=== PATIENT | male | born 1985 | race Caucasian/White ===

== ENCOUNTER 2017-07-14 07:27 | Emergency (ER) | payer BC ==
[2017-07-14 07:45] VITALS: BP 131/88
--- NOTE | 2017-07-14 09:41 | UC ---
Respiratory Complaint HPI - HPI Summary HPI Summary: 2 DAYS OF DRY COUGH, CHEST CONGESTION, ST AND PAIN WITH SWALLOWING. HAS HAD TONSILLECTOMY. RAN OUT OF INHALER. ALSO C/O SEVERAL DAYS OF MID/UPPER BACK PAIN. STATES HE HAS CHRONIC BACK PAIN DRU TO ARTHRITIC CHANGES. USUALLY TAKES OTC MEDS BUT THIS TIME NOT HELPING, STATES HE HAS USED HYDROCODONE IN THE PAST WITH GOOD EFFECT BUT DOES NOT DO THIS ROUTINELY. LAST TIME WAS OVER 2 YEARS AGO. DENIES ANY INJURY. - History of Current Complaint Chief Complaint: UCBackPain Stated Complaint: SORE THROAT BACK PAIN Time Seen by Provider: 07/14/17 08:08 Hx Obtained From: Patient Onset/Duration: Gradual Onset, Lasting Days, Still Present Timing: Constant Severity Initially: Moderate Severity Currently: Moderate Pain Intensity: 2 Pain Scale Used: 0-10 Numeric Character: Cough: Nonproductive Aggravating Factors: Nothing Alleviating Factors: Nothing Associated Signs And Symptoms: Positive: URI. Negative: Dyspnea, Fever, Wheezing - Allergies/Home Medications Allergies/Adverse Reactions: Allergies Allergy/AdvReac Type Severity Reaction Status Date / Time lactose Allergy Vomiting Verified 07/14/17 07:37 latex Allergy Swelling Verified 07/14/17 07:37 Of Face,Lips,& Throat naproxen Allergy See Comment Verified 07/14/17 07:37 PMH/Surg Hx/FS Hx/Imm Hx Previously Healthy: Yes - Surgical History Surgical History: Yes Surgery Procedure, Year, and Place: TONISILS AND ADeNOIDS 2006; - Family History Known Family History: Positive: Cardiac Disease, Hypertension, Diabetes, Other - cholesterol - Social History Alcohol Use: Rare Substance Use Type: None Smoking Status (MU): Heavy Every Day Tobacco Smoker Type: Cigarettes Amount Used/How Often: 3-4 cigs/ days Have You Smoked in the Last Year: Yes Review of Systems Constitutional: Negative ENT: Sore Throat Respiratory: Cough Cardiovascular: Negative Gastrointestinal: Negative Musculoskeletal: Other: - BACK PAIN All Other Systems Reviewed And Are Negative: Yes Physical Exam Triage Information Reviewed: Yes Appearance: Well-Appearing, No Pain Distress, Well-Nourished Vital Signs: Initial Vital Signs Temp 98.9 F 07/14/17 07:35 Pulse 77 07/14/17 07:35 Resp 18 07/14/17 07:35 BP 131/88 07/14/17 07:35 Pulse Ox 96 07/14/17 07:35 Vital Signs Reviewed: Yes Eyes: Positive: Conjunctiva Clear ENT: Positive: Hearing grossly normal, Pharynx normal, TMs normal Neck: Positive: Supple, Nontender, No Lymphadenopathy Respiratory Exam: Normal Cardiovascular Exam: Normal Abdomen Description: Positive: Soft Musculoskeletal: Positive: No Edema, ROM Limited @ - BACK Neurological: Positive: Alert Psychological: Positive: Age Appropriate Behavior Skin: Negative: rashes UC Diagnostic Evaluation - Laboratory O2 Sat by Pulse Oximetry: 96 Respiratory Course/Dx - Course Course Of Treatment: DIRECTOR LEARNING AND DEVELOPMENT CLEAR - Reference #: [id number]. REFILL ALBUTEROL AND PPI REQUESTED. SX LIKELY VIRALLY MEDIATED AND WILL RESOLVE WITH TIME. NORCO FOR BACK PAIN. SUGGESTED EVAL AT [facility] AND CONSIDER PHYSICAL THERAPY. PT DECLINES PHYSICAL THERAPY REFERRAL TODAY. - Differential Dx/Diagnosis Provider Diagnoses: 1. ACUTE URI. 2. ACUTE ON CHRONIC BACK PAIN Discharge - Discharge Plan Condition: Stable Disposition: HOME Prescriptions: Albuterol HFA INHALER* [Ventolin HFA Inhaler*] 2 puff INH Q4H PRN #1 mdi PRN Reason: Shortness Of Breath HYDROcodone/ACETAMIN 5-325 MG* [[place] 5-325 TAB*] 1 tab PO Q6H PRN #15 tab MDD 4 PRN Reason: Pain Lansoprazole CAP (NF) [Prevacid CAP (NF)] 30 mg PO BID PRN #60 cap.dr PRN Reason: Heartburn Patient Education Materials: Upper Respiratory Infection (ED), Chronic Back Pain (ED) Forms: *School Release Referrals: Terri Theodore MD [Primary Care Provider] - 2 Weeks Additional Instructions: YOUR SYMPTOMS ARE LIKELY VIRALLY MEDIATED AND SHOULD RESOLVE ON THEIR OWN WITH TIME. REST, HYDRATE, OTC MEDS NEEDED. ALBUTEROL NEEDED. SEEK FOLLOW-UP IF YOU ARE NOT IMPROVING OVER THE NEXT 1-2 WEEKS. FOR YOUR BACK PAIN BE SURE TO GO THROUGH SLOW RANGE OF MOTION AND STRETCHING EXERCISES DAILY YOU ARE ABLE TO PREVENT STIFFENING UP AND MAKING THE DISCOMFORT WORSE. CONSIDER EVALUATION BY OFFICE MACHINE SERVICE SUPERVISOR AND/OR PHYSICAL THERAPY. [facility] [address] [place] [id number] PREVACID REFILLED PER REQUEST. FOLLOW-UP WITH YOUR PCP FOR FURTHER REFILLS.
== END 2017-07-14 08:47 | disposition home or self-care (01) ==
LOC: UCEAST 07:27
DX: J06.9 Acute upper respiratory infection, unspecified (principal); M54.9 Dorsalgia, unspecified; Z88.6 Allergy status to analgesic agent; Z91.040 Latex allergy status; F17.210 Nicotine dependence, cigarettes, uncomplicated
CPT/HCPCS: 99212; G0463

== ENCOUNTER 2018-04-28 18:42 | Emergency (ER) | payer BC ==
--- NOTE | 2018-04-28 18:48 | UC ---
Hand/Wrist HPI - HPI Summary HPI Summary: 32 yo male presents with RIGHT wrist pain for the last 5 days. He tells me that he was bowling on 04/24 and towards the end of the game he felt a pull on the ulnar aspect of his right wrist. Has been painful since that time. Yesterday he was moving a heavy entertainment center and today pain was worse. Denies numbness or tingling. He been taking tylenol and ibuprofen for pain with no relief. - History Of Current Complaint Stated Complaint: WRIST INJURY Time Seen by Provider: 04/28/18 18:47 Hx Obtained From: Patient Onset/Duration: Sudden Onset Severity Initially: Moderate Severity Currently: Moderate Pain Intensity: 8 Pain Scale Used: 0-10 Numeric - Allergies/Home Medications Allergies/Adverse Reactions: Allergies Allergy/AdvReac Type Severity Reaction Status Date / Time lactose Allergy Vomiting Verified 04/28/18 18:50 latex Allergy Swelling Verified 04/28/18 18:50 Of Face,Lips,& Throat naproxen Allergy See Comment Verified 04/28/18 18:50 PMH/Surg Hx/FS Hx/Imm Hx - Additional Past Medical History Additional PMH: None - Surgical History Surgical History: Yes Surgery Procedure, Year, and Place: TONISILS AND ADeNOIDS 2006; - Family History Known Family History: Positive: Cardiac Disease, Hypertension, Diabetes, Other - cholesterol - Social History Occupation: Student Lives: With Family Alcohol Use: Rare Substance Use Type: None Smoking Status (MU): Heavy Every Day Tobacco Smoker Type: Cigarettes Amount Used/How Often: 3-4 cigs/ days Have You Smoked in the Last Year: Yes Review of Systems All Other Systems Reviewed And Are Negative: Yes Constitutional: Positive: Negative Skin: Positive: Negative Respiratory: Positive: Negative Cardiovascular: Positive: Negative Neurovascular: Positive: Negative Musculoskeletal: Positive: Other: - Right wrist pain Neurological: Positive: Negative Psychological: Positive: Negative Physical Exam - Summary Physical Exam Summary: GENERAL: NAD. WDWN. No pain distress. SKIN: No rashes, sores, lesions, or open wounds. CHEST: No accessory muscle use. Breathing comfortably and in no distress. CV: Pulses intact radial and ulnar. Cap refill <2seconds MSK: RIGHT WRIST: Moderate TTP over ulnar aspect of right wrist. FROM, but pain with radial deviation, flexion, and extension. FROM all fingers. 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 No edema or obvious bony deformities. No snuffbox tenderness. NEURO: Alert. Sensations intact hand and all fingers. PSYCH: Age appropriate behavior. Triage Information Reviewed: Yes Vital Signs: Vital Signs: Temp Pulse Resp BP Pulse Ox 98.1 F 76 18 135/86 97 04/28/18 18:48 04/28/18 18:48 04/28/18 18:48 04/28/18 18:48 04/28/18 18:48 Vital Signs Reviewed: Yes Hand/Wrist Course/Dx - Course Course Of Treatment: XR wrist: No radiologist reading after 1800, therefore wet read by myself is negative for fracture. Suspect wrist sprain. Pt was placed in a cock-up splint and advised to RICE and f/u with Orthopedics for further evaluation. He is asking for pain medication. He has taken ibuprofen with no relief and says that he can not take naproxen because it causes him chest pain. Will try him with meloxicam. - Differential Dx/Diagnosis Provider Diagnosis: Right wrist sprain Discharge - Sign-Out/Discharge Documenting (check all that apply): Patient Departure All imaging exams completed and their final reports reviewed: No - Discharge Plan Condition: Stable Disposition: HOME Prescriptions: Meloxicam 7.5 mg PO BID PRN #14 tab MDD 2 PRN Reason: Pain Patient Education Materials: Wrist Sprain (ED) Referrals: Terri Theodore MD [Primary Care Provider] - [facility] [Provider Group] - As Soon As Possible Additional Instructions: If you develop a fever, shortness of breath, chest pain, new or worsening symptoms - please call your PCP or go to the ED. Your blood pressure was high at todays visit. Please see your primary provider within 4 weeks for recheck and re-evaluation. 1) Rest, Ice, and elevate your wrist as much as possible 2) Use the wrist brace for protection and added pain relief 3) Please call Sports Medicine at the number below to schedule a follow up appointment - Billing Disposition and Condition Condition: STABLE Disposition: Home
[2018-04-28 19:02] VITALS: BP 135/86
--- NOTE | 2018-04-30 10:58 | UC ---
- Progress Note Progress Note: Patient Name: HEDY AMARAL Medical Record#: [id number] Ordering Physician: Yasmani CARRIZALES Acct.#: [id number] : 1985 Age: 32 Sex: M Location: [facility] Exam Date: 04/28/181843 ADM Status: DEP ER Order Information: WRIST RIGHT 3+ VWS Accession Number: [id number] CPT: 01576 INDICATION: Right wrist injury. TECHNIQUE: 3 views of the right wrist were obtained. FINDINGS: The bones are normal alignment. There is absence of the ulnar styloid process. No fracture is seen. Joint spaces appear maintained. IMPRESSION: NO EVIDENCE FOR FRACTURE, IF THE PATIENT'S SYMPTOMS PERSIST RECOMMEND FOLLOW-UP IMAGING. R0 Preliminary Imaging Read R0 <Electronically signed by Juan M Perry MD in OV> 04/29/18717 Dictated By: Juan M Perry MD Dictated Date/Time: 04/29/18717 Transcribed Date/Time: 04/29/18715 Copy to: CC:Yasmani CARRIZALES; Terri Theodore MD; Damien Pino MD Imaging - [facility] [address] [place] [address] ph ([phone]) ph ([phone]) ph ([phone]) This report is only to be considered final once signed by the Provider(s) as displayed in the "<Electronically Signed by >" field (s). Absence of a signature indicates the report is in a draft status and still needs to be finalized. In the event this document was created by someone other than the signing Provider, the individual initiating the document will be listed in the "Entered by:" or "Dictated by:" tobias. 1 of 1 Course/Dx - Diagnoses Provider Diagnoses: Right wrist sprain Discharge - Sign-Out/Discharge Documenting (check all that apply): Post-Discharge Follow Up All imaging exams completed and their final reports reviewed: Yes - Discharge Plan Condition: Stable Disposition: HOME Prescriptions: Meloxicam 7.5 mg PO BID PRN #14 tab MDD 2 PRN Reason: Pain Patient Education Materials: Wrist Sprain (ED) Referrals: [facility] [Provider Group] - As Soon As Possible Terri Theodore MD [Primary Care Provider] - Additional Instructions: If you develop a fever, shortness of breath, chest pain, new or worsening symptoms - please call your PCP or go to the ED. Your blood pressure was high at todays visit. Please see your primary provider within 4 weeks for recheck and re-evaluation. 1) Rest, Ice, and elevate your wrist as much as possible 2) Use the wrist brace for protection and added pain relief 3) Please call Sports Medicine at the number below to schedule a follow up appointment - Billing Disposition and Condition Condition: STABLE Disposition: Home
== END 2018-04-28 19:20 | disposition home or self-care (01) ==
LOC: UCEAST 18:42
DX: S63.501A Unspecified sprain of right wrist, initial encounter (principal); X50.0XXA Overexertion from strenuous movement or load, initial encounter; Y93.54 Activity, bowling; Y92.39 Other specified sports and athletic area as the place of occurrence of the external cause; Z88.8 Allergy status to other drugs, medicaments and biological substances; F17.210 Nicotine dependence, cigarettes, uncomplicated
CPT/HCPCS: 99213; G0463

== ENCOUNTER 2018-05-29 14:21 | Emergency (ER) | payer BC ==
--- NOTE | 2018-05-29 14:53 | UC ---
Throat Pain/Nasal Greg HPI - HPI Summary HPI Summary: 32-year-old male comes to clinic today with a chief complaint of runny nose and sinus pressure. Rhinorrhea is been yellow. He's taken [id number] medicines which helped some but then the pressure returns. Denies any ear pain or cough or chest congestion. Symptoms started a little more than a week ago. - History of Current Complaint Stated Complaint: SINUS COMPLAINT Time Seen by Provider: 05/29/18 14:44 - Allergies/Home Medications Allergies/Adverse Reactions: Allergies Allergy/AdvReac Type Severity Reaction Status Date / Time lactose Allergy Vomiting Verified 05/29/18 14:44 latex Allergy Swelling Verified 05/29/18 14:44 Of Face,Lips,& Throat naproxen Allergy See Comment Verified 05/29/18 14:44 Home Medications: Home Medications Aspirin/Acetaminophen/Caffeine [Excedrin Migraine Geltab] 1 each PO ONCE [History Confirmed 05/29/18] Dm/Pseudoephed/Acetaminophen [Day-Time Multi-Symptom Co] 1 cap PO ONCE 05/29/18 [History Confirmed 05/29/18] PMH/Surg Hx/FS Hx/Imm Hx Previously Healthy: Yes - Surgical History Surgical History: Yes Surgery Procedure, Year, and Place: TONISILS AND ADeNOIDS 2006; - Family History Known Family History: Positive: Cardiac Disease, Hypertension, Diabetes, Other - cholesterol - Social History Alcohol Use: Rare Substance Use Type: None Smoking Status (MU): Heavy Every Day Tobacco Smoker Type: Cigarettes Amount Used/How Often: 3-4 cigs/ days Have You Smoked in the Last Year: Yes Review of Systems All Other Systems Reviewed And Are Negative: Yes Constitutional: Positive: Negative Skin: Positive: Negative Eyes: Positive: Negative ENT: Positive: Sore Throat, Nasal Discharge, Sinus Congestion, Sinus Pain/ Tenderness Respiratory: Positive: Negative Cardiovascular: Positive: Negative Gastrointestinal: Positive: Negative Motor: Positive: Negative Neurovascular: Positive: Negative Musculoskeletal: Positive: Negative Neurological: Positive: Negative Psychological: Positive: Negative Is Patient Immunocompromised?: No Physical Exam Triage Information Reviewed: Yes Appearance: No Pain Distress, Well-Nourished, Ill-Appearing - MILD Vital Signs Reviewed: Yes Eye Exam: Normal Eyes: Positive: Conjunctiva Clear ENT: Positive: Pharyngeal erythema, Nasal congestion, Nasal drainage, TMs normal Neck exam: Normal Neck: Positive: Supple Respiratory: Positive: Lungs clear, Normal breath sounds, No respiratory distress Cardiovascular: Positive: RRR Musculoskeletal Exam: Normal Musculoskeletal: Positive: Strength Intact, ROM Intact Neurological Exam: Normal Neurological: Positive: Alert, Muscle Tone Normal Psychological Exam: Normal Psychological: Positive: Age Appropriate Behavior Skin Exam: Normal Throat Pain/Nasal Course/Dx - Course Course Of Treatment: DISCUSSED VIRAL VERSES BACTERIAL INFECTION AND THE ROLE OF ANTIBIOTICS. THE PATIENT WISHES TO BE ON ANTIBIOTIC AT THIS TIME. - Differential Dx/Diagnosis Provider Diagnosis: Sinusitis Discharge - Sign-Out/Discharge Documenting (check all that apply): Patient Departure All imaging exams completed and their final reports reviewed: No Studies - Discharge Plan Condition: Stable Disposition: HOME Prescriptions: Amoxicillin/Clavulanate TAB* [Augmentin TAB 875*] 875 mg PO BID #20 tab Patient Education Materials: Sinusitis (ED) Referrals: Terri Theodore MD [Primary Care Provider] - Additional Instructions: FOLLOW UP WITH YOUR DOCTOR IF NOT COMPLETELY IMPROVED. GET RECHECKED FOR ANY WORSENING OF YOUR CONDITION OR QUESTIONS OR CONCERNS. - Billing Disposition and Condition Condition: STABLE Disposition: Home
[2018-05-29 15:05] VITALS: BP 144/97
== END 2018-05-29 15:05 | disposition home or self-care (01) ==
LOC: UCEAST 14:21
DX: J32.9 Chronic sinusitis, unspecified (principal); F17.210 Nicotine dependence, cigarettes, uncomplicated; Z91.040 Latex allergy status; Z91.011 Allergy to milk products; Z88.6 Allergy status to analgesic agent; Z79.82 Long term (current) use of aspirin
CPT/HCPCS: 99202; G0463

== ENCOUNTER 2018-08-21 17:15 | Emergency (ER) | payer BC ==
[2018-08-21 17:39] VITALS: BP 124/84
--- NOTE | 2018-08-21 17:46 | UC ---
General HPI - HPI Summary HPI Summary: 6 days ago, a drill accidentally fell off a surface and landed on pt's r foot. he was barefoot at the time and the drill bit is what hit the pt in the top of his foot. c/o pain, swelling and worsening bruising to his toes. no fever or limited ROM. last tetanus was within 10 years. - History of Current Complaint Chief Complaint: UCLowerExtremity Stated Complaint: RIGHT FOOT SKIN CONCERN Time Seen by Provider: 08/21/18 17:33 Hx Obtained From: Patient Onset/Duration: Sudden Onset Timing: Constant Pain Intensity: 5 Associated Signs & Symptoms: Negative: Fever - Allergy/Home Medications Allergies/Adverse Reactions: Allergies Allergy/AdvReac Type Severity Reaction Status Date / Time lactose Allergy Vomiting Verified 08/21/18 17:32 latex Allergy Swelling Verified 08/21/18 17:32 Of Face,Lips,& Throat naproxen Allergy See Comment Verified 08/21/18 17:32 Home Medications: Home Medications Omeprazole CAP (NF) [Prilosec CAP* 20 MG] 20 mg PO DAILY 08/21/18 [History Confirmed 08/21/18] PMH/Surg Hx/FS Hx/Imm Hx Previously Healthy: Yes - Surgical History Surgical History: Yes Surgery Procedure, Year, and Place: TONSILS AND ADENOIDS 2006; - Family History Known Family History: Positive: Cardiac Disease, Hypertension, Diabetes, Other - cholesterol - Social History Alcohol Use: Rare Substance Use Type: None Smoking Status (MU): Heavy Every Day Tobacco Smoker Type: Cigarettes Amount Used/How Often: 1/4 PPD Have You Smoked in the Last Year: Yes - Immunization History Hx Tetanus, Diphtheria Vaccination: Yes Review of Systems All Other Systems Reviewed And Are Negative: Yes Musculoskeletal: Positive: Other: - R foot pain/swelling/brusing Physical Exam Triage Information Reviewed: Yes Appearance: Well-Appearing Vital Signs: Initial Vital Signs Temp 98.6 F 08/21/18 17:34 Pulse 73 08/21/18 17:34 Resp 20 08/21/18 17:34 BP 124/84 08/21/18 17:34 Pulse Ox 99 08/21/18 17:34 Vital Signs Reviewed: Yes Eyes: Positive: Conjunctiva Clear Neck: Positive: Supple Respiratory: Positive: Lungs clear Cardiovascular: Positive: RRR Abdomen Description: Positive: Nontender Bowel Sounds: Positive: Present Musculoskeletal: Positive: Other: - R dorsal foot with moderate swelling and brusing to base of toes. Central scab to dorsal foot. area over the 4th metatarsal is tender. the foot has gross s/v/m function. Neurological: Positive: Alert Psychological: Positive: Age Appropriate Behavior Skin Exam: Normal Diagnostics - Radiology No standard instances Radiology Interpretation Completed By: ED Physician - R FOOT=STS, NO FX OR GAS Course/Dx - Differential Dx - Multi-Symptom Differential Diagnoses: Other - NO FX OR GAS ON XRAY. NO OSTEOMYELITIS ON XRAY. WILL COVER FOR POSSIBLE EARLY INFECTION BECAUSE OF WORSENING PAIN 6 DAYS AFTER THE INJURY. WILL POST OP SHOE NEEDED FOR COMFORT. - Diagnoses Provider Diagnosis: Contusion of right foot, Abrasion foot/toe Discharge - Sign-Out/Discharge Documenting (check all that apply): Patient Departure All imaging exams completed and their final reports reviewed: No - Discharge Plan Condition: Stable Disposition: HOME Prescriptions: cephALEXin [Keflex] 500 mg PO TID 7 Days #21 capsule Patient Education Materials: Cellulitis (DC), Contusion in Adults (ED), Abrasion (ED) Referrals: Terri Theodore MD [Primary Care Provider] - Additional Instructions: FOLLOW UP PRIMARY CARE IN 3-5 DAYS FOR A RECHECK OR SOONER FOR ANY WORSENING. WEAR THE POST OP SHOE NEEDED FOR COMFORT. - Billing Disposition and Condition Condition: STABLE Disposition: Home - Attestation Statements Provider Attestation: Per institutional requirements, I have reviewed the chart, however, I was not consulted specifically or made aware of this patient by the midlevel provider. I did not personally evaluate, interact with , or disposition this patient.
--- NOTE | 2018-08-22 08:44 | UC ---
- Progress Note Progress Note: final x ray read reviewed. Neg for fx. Course/Dx - Diagnoses Provider Diagnoses: Contusion of right foot, Abrasion foot/toe Discharge - Sign-Out/Discharge Documenting (check all that apply): Post-Discharge Follow Up All imaging exams completed and their final reports reviewed: Yes - Discharge Plan Condition: Stable Disposition: HOME Prescriptions: cephALEXin [Keflex] 500 mg PO TID 7 Days #21 capsule Patient Education Materials: Cellulitis (DC), Contusion in Adults (ED), Abrasion (ED) Referrals: Terri Theodore MD [Primary Care Provider] - Additional Instructions: FOLLOW UP PRIMARY CARE IN 3-5 DAYS FOR A RECHECK OR SOONER FOR ANY WORSENING. WEAR THE POST OP SHOE NEEDED FOR COMFORT. - Billing Disposition and Condition Condition: STABLE Disposition: Home
== END 2018-08-21 18:31 | disposition home or self-care (01) ==
LOC: UCCORT 17:15
DX: S90.31XA Contusion of right foot, initial encounter (principal); S90.414A Abrasion, right lesser toe(s), initial encounter; F17.210 Nicotine dependence, cigarettes, uncomplicated; Z91.040 Latex allergy status; Z91.011 Allergy to milk products; Z88.8 Allergy status to other drugs, medicaments and biological substances; W20.8XXA Other cause of strike by thrown, projected or falling object, initial encounter; Y92.9 Unspecified place or not applicable
CPT/HCPCS: 99213; G0463

== ENCOUNTER 2019-02-21 08:32 | Emergency (ER) | payer BC ==
[2019-02-21 08:46] VITALS: BP 152/91
--- NOTE | 2019-02-21 09:22 | UC ---
Throat Pain/Nasal Greg HPI - HPI Summary HPI Summary: Patient presents to urgent care for evaluation of 4-5 days progressive sinus congestion postnasal drip and sore throat. Patient states he "got it from his sister cold. Patient's been using Flonase as well as Tylenol/Motrin and albuterol MDI. Patient states his symptoms are getting better. Patient states he feels some popping and discomfort in his ears left more than right. No documented fevers or chills. No nausea vomiting. Decreased energy. Patient is taking normal by mouth. No diarrhea or urinary complaints. Patient does smoke cigarettes but has not smoked in the last 2 days. Patient works in a [employer] where he is exposed to fumes. Patient denies seasonal allergies. Patient's medications reviewed this visit. - History of Current Complaint Chief Complaint: UCRespiratory Stated Complaint: SORE THROAT Time Seen by Provider: 02/21/19 08:49 Onset/Duration: Gradual Onset Severity: Mild Pain Intensity: 5 Pain Scale Used: 0-10 Numeric - Allergies/Home Medications Allergies/Adverse Reactions: Allergies Allergy/AdvReac Type Severity Reaction Status Date / Time lactose Allergy Vomiting Verified 02/21/19 08:47 latex Allergy Swelling Verified 02/21/19 08:47 Of Face,Lips,& Throat naproxen Allergy See Comment Verified 02/21/19 08:47 PMH/Surg Hx/FS Hx/Imm Hx Previously Healthy: Yes Respiratory History: Asthma - Surgical History Surgical History: Yes Surgery Procedure, Year, and Place: TONSILS AND ADENOIDS 2006; - Family History Known Family History: Positive: Cardiac Disease, Hypertension, Diabetes, Other - cholesterol - Social History Occupation: Employed Full-time Lives: With Family Alcohol Use: Rare Substance Use Type: None Smoking Status (MU): Heavy Every Day Tobacco Smoker Type: Cigarettes Amount Used/How Often: 1/4 PPD Have You Smoked in the Last Year: Yes - Immunization History Hx Tetanus, Diphtheria Vaccination: Yes Review of Systems All Other Systems Reviewed And Are Negative: Yes Constitutional: Positive: Fatigue ENT: Positive: Sore Throat, Nasal Discharge, Sinus Congestion, Sinus Pain/ Tenderness Respiratory: Positive: Negative Cardiovascular: Positive: Negative Gastrointestinal: Positive: Negative Is Patient Immunocompromised?: No Physical Exam - Summary Physical Exam Summary: Vital Signs Reviewed: Yes A+Ox3, congested, mild laryngitis Eyes: Conjunctiva Clear, MARCY. 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 Symptoms progressive for the last 4-5 days. Patient states he's been taking over-the- counter Motrin and Tylenol as well as Flonase and albuterol with little improvement. Patient states he had fatigue but no documented fever. Patient does smoke cigarettes. On exam vital signs show mildly elevated blood pressure. Patient consistent with rhinosinusitis fluid in his left ear pain on his Sinus. Patient's lungs are clear. Strep throat is negative. We'll prescribe amoxicillin. We'll refill his albuterol. Patient to continue using Flonase. Discussed with patient secretion precautions. Motrin Tylenol. Return precautions. Patient comfortable in agreement with plan. - Differential Dx/Diagnosis Provider Diagnosis: Acute rhinosinusitis Discharge ED - Sign-Out/Discharge Documenting (check all that apply): Patient Departure All imaging exams completed and their final reports reviewed: No Studies - Discharge Plan Condition: Stable Disposition: HOME Prescriptions: Albuterol HFA INHALER* [Ventolin HFA Inhaler*] 2 puff INH Q4H PRN #1 mdi PRN Reason: wheeze Amoxicillin PO (*) [Amoxicillin 500 MG CAP*] 500 mg PO Q12H #20 cap Patient Education Materials: Rhinosinusitis (ED) Referrals: Terri Theodore MD [Primary Care Provider] - Additional Instructions: - Stay well hydrated. Drink plenty of non-alcoholic, non-caffinated beverages. - Alternate ibuprofen (Advil, Motrin) 600mg and Tylenol every 3 hours for pain or fever. Take with food. Do NOT take for more than 4-5 days. - These infections are spread by secretions - do NOT share eating or drinking utensils - clean items you share with other people such as cell phones, computer mouse, TV remote, computer tablets,etc. Once you have been antibiotics for 2 days, change your toothbrush and your pillowcase. - get plenty of restful sleep - humidify the air in the room where you sleep - boil water, run a hot steam shower, vaporizer, cups of water by heat register - okay to take over the counter decongestant and cough medication (claritin-D, Mayra-D, Zyrtec-D) - use nasal spray as prescribed - use your inhaler as needed for cough, wheeze - continue to work on decreasing cigarette use - contact your doctor or return with questions or concerns - Billing Disposition and Condition Condition: STABLE Disposition: Home
== END 2019-02-21 09:37 | disposition home or self-care (01) ==
LOC: UCEAST 08:32
DX: J01.90 Acute sinusitis, unspecified (principal); J45.909 Unspecified asthma, uncomplicated; F17.210 Nicotine dependence, cigarettes, uncomplicated; Z91.040 Latex allergy status
CPT/HCPCS: 87651; 99212; G0463